=== PATIENT | male | born 1970 | race African-American/Black ===

== ENCOUNTER 2020-03-08 15:13 | Inpatient (IN) ==
[2020-03-08] MEDS ORDERED: ALBUTEROL/IPRATROPIUM 3 ML NEB RESP TX STA (16:10)
[2020-03-08] MEDS ORDERED: AZITHROMYCIN INJ 500 MG in SODIUM CHLORIDE 0.9% 250 ML IV STA (16:10)
[2020-03-08] MEDS ORDERED: ONDANSETRON 4 MG/2 ML VIAL IV STA (16:10)
[2020-03-08] MEDS ORDERED: methylPREDNISolone SOD SUC 125 MG/2 ML VIAL IV STA (16:10)
[2020-03-08 17:17] LABS: INR 1.1; PT Patient Result 11.5 SECS (9.8-11.9); Partial Thromboplastin Time 34.2 SECS (23.9-33.8)
[2020-03-08 17:19] LABS: Alanine Aminotransferase 9 U/L (16-61); Albumin 3.1 G/DL (3.4-5.0); Alkaline Phosphatase 61 U/L (45-117); Aspartate Amino Transferase 16 U/L (0-37); Bilirubin,Total < 0.39 MG/DL (0.2-1.0); Blood Urea Nitrogen 27 MG/DL (7-18); Calcium 9.1 MG/DL (8.5-10.1); Estimated Glom Filtration Rate 11 ML/MIN; Ferritin 1454.4 ng/ml (26-388); Glucose 80 MG/DL (74-106); Osmolality,Calculated 278.7 MOS/KG (273-304); Total Protein 8.6 G/DL (6.4-8.3); Troponin I 0.045 NG/ML (0.00-0.045)
[2020-03-08 17:23] LABS: Basophils % 0.4 % (0.0-0.8); Eosinophils # 0.7 10*3/uL (0.0-0.87); Eosinophils % 13.2 % (0.00-10.9); Hematocrit 37.7 VOL% (42.0-52.0); Immature Granulocytes % 0.2 %; Immature Granulocytes Absolute 0.01 #; Lymphocytes # 1.2 10*3/uL (1.4-4.0); Lymphocytes % 23.2 % (21.2-54.2); Mean Corpuscular HGB Conc 29.2 GM/DL (32-36); Mean Corpuscular Volume 90.2 FL (87-102); Mean Platelet Volume 9.3 FL (9.6-12.0); Monocytes % 13.2 % (1.7-12.7); Neutrophils % 49.8 % (38.7-73.9); Platelet Count 246 T/CUMM (130-400); Red Blood Count 4.18 MC/CUMM (3.8-5.5); White Blood Count 5.2 T/CUMM (4-12)
[2020-03-08 17:28] LABS: Eosinophils 14 % (0-10); Lymphocytes 23 % (20-55); Segmented Neutrophils 54 % (50-85); Total Cells Counted 100
[2020-03-08 17:29] LABS: Hypochromasia Slight; Platelet Estimate Normal
[2020-03-08] MEDS ORDERED: guaiFENesin/DM ER 600-30 MG TABLET PO PRN (18:22)
[2020-03-08] MEDS ORDERED: DOCUSATE SODIUM 100 MG CAPSULE PO PRN (18:22)
[2020-03-08] MEDS ORDERED: ACETAMINOPHEN 325 MG TABLET PO PRN (18:22)
[2020-03-08] MEDS ORDERED: GLUCAGON 1 MG VIAL IM PRN (18:22)
[2020-03-08] MEDS ORDERED: DEXTROSE 50% 25 GM/50 ML VIAL IV PRN (18:22)
[2020-03-08] MEDS ORDERED: MAGNESIUM SULF RIDER 4 GM in PREMIX 1 EACH IV PRN (18:22)
[2020-03-08] MEDS ORDERED: ALBUTEROL/IPRATROPIUM 3 ML NEB RESP TX PRN (18:22)
[2020-03-08] MEDS ORDERED: POTASSIUM CHLORIDE 20 MEQ TABLET PO PRN (18:22)
[2020-03-08] MEDS ORDERED: hydrALAZINE 20 MG/1 ML VIAL IV PRN (18:22)
[2020-03-08] MEDS ORDERED: MAGNESIUM SULF RIDER 2 GM in PREMIX 1 EACH IV PRN (18:22)
[2020-03-08] MEDS ORDERED: ONDANSETRON 4 MG/2 ML VIAL IV PRN (18:22)
[2020-03-08] MEDS: RALTEGRAVIR 400 MG PO SCH (20:21)
[2020-03-08] MEDS: carvediloL 25 MG TABLET PO SCH (20:22)
[2020-03-09 05:13] LABS: Basophils % 0.3 % (0.0-0.8); Hematocrit 39.9 VOL% (42.0-52.0); Hemoglobin 11.3 GM/DL (14.0-18.0); Immature Granulocytes % 0.9 %; Immature Granulocytes Absolute 0.03 #; Lymphocytes # 0.6 10*3/uL (1.4-4.0); Lymphocytes % 18.3 % (21.2-54.2); Mean Corpuscular HGB Conc 28.3 GM/DL (32-36); Mean Corpuscular Volume 92.6 FL (87-102); Mean Platelet Volume 10.3 FL (9.6-12.0); Monocytes % 1.2 % (1.7-12.7); Neutrophils % 79.3 % (38.7-73.9); Platelet Count 259 T/CUMM (130-400); Red Blood Count 4.31 MC/CUMM (3.8-5.5); Red Cell Distribution Width 18.8 % (9.3-17.3); White Blood Count 3.4 T/CUMM (4-12)
[2020-03-09 05:24] LABS: Alanine Aminotransferase 10 U/L (16-61); Albumin 3.1 G/DL (3.4-5.0); Alkaline Phosphatase 66 U/L (45-117); Aspartate Amino Transferase 10 U/L (0-37); Bilirubin,Total < 0.39 MG/DL (0.2-1.0); Blood Urea Nitrogen 36 MG/DL (7-18); Estimated Glom Filtration Rate 10 ML/MIN; Glucose 195 MG/DL (74-106); HDL Cholesterol 66 MG/DL (40-60); Osmolality,Calculated 285.8 MOS/KG (273-304); Risk Ratio 2.92; Total Protein 8.8 G/DL (6.4-8.3); Triglycerides 51 MG/DL (2-150); Troponin I 0.022 NG/ML (0.00-0.045); VLDL CHOLESTEROL 10.2 MG/DL
[2020-03-09 05:36] LABS: Hypochromasia 1+; Microcytosis 1+; Ovalocytes Few; Platelet Estimate Normal
[2020-03-09] MEDS ORDERED: amLODIPine 10 MG TABLET PO SCH ×2 (09:00→12:09)
[2020-03-09] MEDS: ASPIRIN EC 81 MG TABLET PO SCH (10:32)
[2020-03-09] MEDS: ISOSORBIDE MONONITRATE 20 MG TABLET PO SCH (10:32)
[2020-03-09] MEDS: carvediloL 25 MG TABLET PO SCH ×2 (10:32→18:50)
[2020-03-09] MEDS: PANTOPRAZOLE 40 MG TABLET PO SCH (10:33)
[2020-03-09] MEDS: FUROSEMIDE 40 MG/4 ML VIAL IV SCH ×2 (10:33→16:32)
[2020-03-09] MEDS: HEPARIN 5,000 UNIT/1 ML VIAL SUBCUT SCH ×2 (10:52→16:37)
[2020-03-09] MEDS ORDERED: AZITHROMYCIN INJ 500 MG in SODIUM CHLORIDE 0.9% 250 ML IV SCH (12:00)
[2020-03-09] MEDS: cloNIDine 0.1 MG TABLET PO SCH (16:31)
[2020-03-09] MEDS: RALTEGRAVIR 400 MG PO SCH ×2 (16:32→20:26)
[2020-03-09] MEDS ORDERED: LAMIVUDINE 50 MG PO SCH (21:00)
[2020-03-09] MEDS ORDERED: ZIDOVUDINE 300 MG PO SCH (21:00)
[2020-03-10] MEDS: HEPARIN 5,000 UNIT/1 ML VIAL SUBCUT SCH ×2 (00:13→08:44)
[2020-03-10 06:10] LABS: Basophils % 0.5 % (0.0-0.8); Eosinophils # 0.2 10*3/uL (0.0-0.87); Eosinophils % 2.6 % (0.00-10.9); Hemoglobin 9.9 GM/DL (14.0-18.0); Immature Granulocytes % 0.7 %; Immature Granulocytes Absolute 0.04 #; Lymphocytes # 1.3 10*3/uL (1.4-4.0); Lymphocytes % 22.2 % (21.2-54.2); Mean Corpuscular HGB Conc 29.1 GM/DL (32-36); Mean Corpuscular Volume 91.9 FL (87-102); Mean Platelet Volume 9.9 FL (9.6-12.0); Monocytes % 9.7 % (1.7-12.7); Neutrophils % 64.3 % (38.7-73.9); Platelet Count 211 T/CUMM (130-400); Red Cell Distribution Width 19.2 % (9.3-17.3); White Blood Count 5.8 T/CUMM (4-12)
[2020-03-10 06:30] LABS: Alanine Aminotransferase < 9 U/L (16-61); Albumin 2.9 G/DL (3.4-5.0); Alkaline Phosphatase 57 U/L (45-117); Aspartate Amino Transferase 10 U/L (0-37); Bilirubin,Total < 0.39 MG/DL (0.2-1.0); Blood Urea Nitrogen 35 MG/DL (7-18); Calcium 8.5 MG/DL (8.5-10.1); Estimated Glom Filtration Rate 12 ML/MIN; Glucose 94 MG/DL (74-106); Osmolality,Calculated 282.7 MOS/KG (273-304); Total Protein 7.8 G/DL (6.4-8.3)
[2020-03-10] MEDS: cloNIDine 0.1 MG TABLET PO SCH (08:42)
[2020-03-10] MEDS: carvediloL 25 MG TABLET PO SCH (08:42)
[2020-03-10] MEDS: PANTOPRAZOLE 40 MG TABLET PO SCH (08:43)
[2020-03-10] MEDS: ASPIRIN EC 81 MG TABLET PO SCH (08:43)
[2020-03-10] MEDS: RALTEGRAVIR 400 MG PO SCH (08:43)
[2020-03-10] MEDS: FUROSEMIDE 40 MG/4 ML VIAL IV SCH (08:44)
[2020-03-10] MEDS: ISOSORBIDE MONONITRATE 20 MG TABLET PO SCH (08:51)
[2020-03-10] MEDS ORDERED: AZITHROMYCIN 250 MG TABLET PO SCH (09:00)
[2020-03-10 11:43] VITALS: BP 127/67
== END 2020-03-10 15:44 | disposition home or self-care (01) | DRG 291 ==
LOC: N.ED 15:13 → N.EDINP 18:22 → N.TELEN 18:48
PROVIDERS: ADMIT Hospitalist; ATTEND Hospitalist